=== PATIENT | female | born 1965 | race Caucasian/White ===

== ENCOUNTER 2023-05-09 11:25 | Inpatient (IN) | payer OTHER ==
[~2023-05-09] VITALS: Ht 152.4 cm; Wt 59.5 kg
[2023-05-09 11:31] VITALS: O2SAT 100
[2023-05-09] MEDS ORDERED: IOHEXOL-350 100 ML BOTTLE ONE (12:28)
[2023-05-09 12:39] LABS: PROTHROMBIN TIME 10.9 sec (9.6-11.0)
[2023-05-09 12:41] LABS: BASOPHILS % 0.3 % (0.0-2.0); DIFFERENTIAL COMMENT 0; EOSINOPHILS % 0.3 % (0.0-5.0); HEMATOCRIT. 38.9 % (36.0-48.0); HEMOGLOBIN. 12.8 g/dL (12.0-16.0); LYMPHOCYTES % 23.9 % (20.0-50.0); MEAN CORPUSCULAR HEMOGLOBIN 31.3 pg (28.0-32.0); MEAN CORPUSCULAR HGB CONC 32.9 g/dL (31.0-37.0); MEAN CORPUSCULAR VOLUME 95.3 fL (81.0-99.0); MEAN PLATELET VOLUME 10.9 fl (7.4-10.4); NEUTROPHILS % 69.5 % (40.0-76.0); PLATELET 180 x1000/uL (130-400); RED BLOOD CELL COUNT 4.08 mill/uL (4.2-5.4); RED CELL DISTRIBUTION WIDTH 13.2 % (11.6-14.6); WHITE BLOOD COUNT 6.5 x1000/uL (4.5-11.0)
[2023-05-09 12:44] LABS: HCG SCREEN NEGATIVE
[2023-05-09 12:53] LABS: ALANINE AMINOTRANSFERASE 22 IU/L (10-49); ASPARTATE AMINOTRANSFERASE 21 IU/L (<34); BILIRUBIN TOTAL 1.2 mg/dL (0.1-1.0); CALCIUM 8.8 mg/dL (8.7-10.4); CARBON DIOXIDE 23 mEq/L (21-32); CHLORIDE 105 mEq/L (98-107); CREATININE 0.6 mg/dL (0.6-1.0); GLUCOSE 86 mg/dL (70-105); POTASSIUM 3.6 mEq/L (3.5-5.1); PROTEIN TOTAL 7.1 g/dL (6.0-8.3); SODIUM 135 mEq/L (136-145); UREA NITROGEN BLOOD 16 mg/dL (9-23)
[2023-05-09 12:54] LABS: ETHANOL BLOOD < 10 mg/dL (<10)
[2023-05-09 16:00] VITALS: BP 134/72; PULSE 68; RESP 18; TEMP 97.9
[2023-05-09] MEDS ORDERED: DOCUSATE SODIUM 100MG CAPSULE PO PRN (16:00)
[2023-05-09] MEDS ORDERED: CLONIDINE 0.1MG TABLET PO PRN (16:00)
[2023-05-09] MEDS ORDERED: ONDANSETRON HCL 4MG/2ML INJ IV PRN (16:00)
[2023-05-09] MEDS ORDERED: GUAIFENESIN 200MG/10ML SUGAR FREE UDC PO PRN (16:00)
[2023-05-09] MEDS ORDERED: ACETAMINOPHEN 325MG TABLET PO PRN ×2 (16:00)
[2023-05-09] MEDS ORDERED: MAGNESIUM/ALUMINUM HYDROXIDE/SIMETHICONE 30ML UDC PO PRN (16:00)
[2023-05-09] MEDS ORDERED: IPRATROPIUM/ALBUTEROL 0.5-3(2.5)MG/3ML NEB NEB PRN (16:00)
[2023-05-09] MEDS ORDERED: NITROGLYCERIN 0.4MG TABLET SL SL PRN (16:00)
[2023-05-09] MEDS ORDERED: KETOROLAC 15MG/ML VIAL IV PRN (16:00)
[2023-05-09 17:41] VITALS: BP 134/72; PULSE 68; RESP 16; TEMP 97.9
[2023-05-09 18:36] LABS: IRON 99 ug/dL (50-170); T4 FREE 1.48 ng/dL (0.89-1.76); THYROID STIMULATING HORMONE 1.44 uIU/mL (0.55-4.78); TOTAL IRON BINDING CAPACITY 138 ug/dl (250-425)
[2023-05-09 18:50] LABS: FOLIC ACID (FOLATE) SERUM > 48.00 ng/mL (>5.38); VITAMIN B12 SERUM 476 pg/mL (211-911)
[2023-05-09 20:00] VITALS: BP 146/72; PULSE 80; RESP 19; TEMP 98.1
[2023-05-09] MEDS ORDERED: ENOXAPARIN 40MG/0.4ML SYR SUBCUT SCH (21:00)
[2023-05-09] MEDS: FAMOTIDINE 20MG TABLET PO SCH (21:00)
[2023-05-10] VITALS: BP 99/51; PULSE 61; RESP 18; TEMP 97.1
[2023-05-10 00:22] LABS: CREATINE KINASE 156 IU/L (34-145); CREATINE KINASE MB FRACTION 2.2 ng/mL (0.5-3.6); TROPONIN I HIGH SENSITIVITY 14 ng/L (3.0-34)
[2023-05-10 04:00] VITALS: BP 126/65; PULSE 81; RESP 18; TEMP 97.9
[2023-05-10 07:05] LABS: ALANINE AMINOTRANSFERASE 20 IU/L (10-49); ASPARTATE AMINOTRANSFERASE 19 IU/L (<34); BILIRUBIN TOTAL 1.5 mg/dL (0.1-1.0); CALCIUM 9.2 mg/dL (8.7-10.4); CARBON DIOXIDE 24 mEq/L (21-32); CHLORIDE 107 mEq/L (98-107); CREATININE 0.7 mg/dL (0.6-1.0); GLUCOSE 77 mg/dL (70-105); PHOSPHORUS 3.9 mg/dL (2.5-4.9); POTASSIUM 3.8 mEq/L (3.5-5.1); PROTEIN TOTAL 6.8 g/dL (6.0-8.3); SODIUM 139 mEq/L (136-145); UREA NITROGEN BLOOD 14 mg/dL (9-23)
[2023-05-10 07:24] LABS: CREATINE KINASE MB FRACTION 1.4 ng/mL (0.5-3.6)
[2023-05-10 07:57] LABS: BASOPHILS % 0.3 % (0.0-2.0); DIFFERENTIAL COMMENT 0; HEMATOCRIT. 41.3 % (36.0-48.0); HEMOGLOBIN. 13.4 g/dL (12.0-16.0); LYMPHOCYTES % 38.7 % (20.0-50.0); MEAN CORPUSCULAR HEMOGLOBIN 31.1 pg (28.0-32.0); MEAN CORPUSCULAR HGB CONC 32.6 g/dL (31.0-37.0); MEAN CORPUSCULAR VOLUME 95.6 fL (81.0-99.0); MEAN PLATELET VOLUME 11.3 fl (7.4-10.4); MONOCYTES % 8.7 % (2.0-8.0); NEUTROPHILS % 51.3 % (40.0-76.0); PLATELET 184 x1000/uL (130-400); RED BLOOD CELL COUNT 4.32 mill/uL (4.2-5.4); RED CELL DISTRIBUTION WIDTH 13.1 % (11.6-14.6); WHITE BLOOD COUNT 5.2 x1000/uL (4.5-11.0)
[2023-05-10 08:00] VITALS: BP 116/63; PULSE 69; RESP 16; TEMP 97.8
[2023-05-10] MEDS ORDERED: CLOPIDOGREL 75MG TABLET PO SCH (09:00)
[2023-05-10] MEDS: FAMOTIDINE 20MG TABLET PO SCH (09:39)
[2023-05-10 12:38] VITALS: BP 116/63; PULSE 69; TEMP 97.8
[2023-05-10] MEDS ORDERED: LIP40 PO (13:01)
[2023-05-10] MEDS ORDERED: CLOP-31 PO (13:01)
[2023-05-10 14:01] LABS: CLARITY URINE CLEAR (CLEAR); COLOR URINE YELLOW (YELLOW); GLUCOSE URINE NEGATIVE (NEGATIVE); KETONES URINE NEGATIVE (NEGATIVE); LEUKOCYTE ESTERASE URINE NEGATIVE (NEGATIVE); NITRITE URINE NEGATIVE (NEGATIVE); OCCULT BLOOD URINE NEGATIVE (NEGATIVE); PROTEIN URINE NEGATIVE (NEGATIVE); SPECIFIC GRAVITY URINE 1.008 (1.005-1.030); UROBILINOGEN URINE 0.2 E.U./dL (0.2-1.0)
[2023-05-10 14:36] LABS: *AMPHETAMINES SCREEN URINE NEGATIVE (NEGATIVE); *BARBITURATES SCREEN URINE NEGATIVE (NEGATIVE); *BENZODIAZEPINES SCREEN URINE NEGATIVE (NEGATIVE); *COCAINE SCREEN URINE NEGATIVE (NEGATIVE); CANNABINOID URINE SCREEN NEGATIVE (NEGATIVE); ECSTASY MDMA SCREEN URINE NEGATIVE (NEGATIVE); METHADONE URINE SCREEN Neg (NEGATIVE); OPIATES URINE SCREEN NEGATIVE (NEGATIVE); PHENCYCLIDINE URINE SCREEN NEGATIVE (NEGATIVE)
[2023-05-10] MEDS ORDERED: ATORVASTATIN CALCIUM 40MG TABLET PO SCH (21:00)
== END 2023-05-10 13:51 | disposition home or self-care (01) | DRG 71 ==
LOC: ER 11:25 → 7EST 13:30 → EDBEDREQ 13:48 → SUPCPDRO 15:47
PROVIDERS: ADMIT Internal Medicine; ATTEND Internal Medicine
DX: G93.40 Encephalopathy, unspecified (principal); E87.1 Hypo-osmolality and hyponatremia; E80.4 Gilbert syndrome; R27.0 Ataxia, unspecified; R47.1 Dysarthria and anarthria; Z86.73 Personal history of transient ischemic attack (TIA), and cerebral infarction without residual deficits; Z79.899 Other long term (current) drug therapy
CPT/HCPCS: 36415; 70496; 70498; 70551; 71045; 80053; 80061; 80305; 80320; 81003; 82550; 82553; 82607; 82746; 83540; 83550; 83735; 84100; 84439; 84443; 84484; 84703; 85025; 93005; 93306; 93970; 99291; J1650; Q9967; G0480